=== PATIENT | female | born 1950 | race Caucasian/White ===

== ENCOUNTER 2016-07-05 19:39 | Emergency (ER) | payer OTHER ==
[~2016-07-05 19:39] MED LIST: ANT12.5 PO; CLINDAMYCIN HC300 MG PO; COL100 PO; COLACE100 MG PO; ECO81 PO; ELA25 PO; LAC PO; LEVAQUIN750 MG PO; LIPITOR80 MG PO; NEXIUM20 MG PO; PER5 PO; PROAIR HFA0.09 MG/A1 INH; ZOCOR5 MG PO
[2016-07-05 21:00] VITALS: BP 110/73
== END 2016-07-05 21:00 | disposition home or self-care (01) ==
LOC: ED 19:39
DX: S62.603A Fracture of unspecified phalanx of left middle finger, initial encounter for closed fracture (principal); E78.00 Pure hypercholesterolemia, unspecified; K21.9 Gastro-esophageal reflux disease without esophagitis; Z85.038 Personal history of other malignant neoplasm of large intestine; Z88.2 Allergy status to sulfonamides; Z88.5 Allergy status to narcotic agent; X58.XXXA Exposure to other specified factors, initial encounter; Y93.89 Activity, other specified; Y99.8 Other external cause status; Y92.89 Other specified places as the place of occurrence of the external cause

== ENCOUNTER 2016-07-20 06:56 | Day surgery (SDC) | payer OTHER ==
[~2016-07-20] VITALS: Ht 165.1 cm; Wt 74.8 kg
[2016-07-20 07:19] VITALS: BP 122/59
[2016-07-20 10:31] VITALS: BP 110/70
== END 2016-07-20 10:25 | disposition home or self-care (01) ==
LOC: DS 06:56 → GI 08:30 → OR 08:30 → DS 10:25
PROVIDERS: Internal Medicine Gastroenterology
PROC: 0DB68ZX Excision of Stomach, Via Natural or Artificial Opening Endoscopic, Diagnostic (ICD-10-PCS; principal; 2016-07-20 08:30)
DX: K29.50 Unspecified chronic gastritis without bleeding (principal); Z85.038 Personal history of other malignant neoplasm of large intestine; Z68.26 Body mass index [BMI] 26.0-26.9, adult
CPT/HCPCS: 43235; J1200; J1610; J2250; J2310; J3010; J3490

== ENCOUNTER → 2016-07-24 | Outpatient (CLI) | payer OTHER | END | disposition home or self-care (01) | LOC: RD 15:49 | DX: M25.542 Pain in joints of left hand (principal) ==

== ENCOUNTER 2016-09-23 23:35 | Emergency (ER) | payer OTHER ==
[2016-09-24 01:51] VITALS: BP 126/63
== END 2016-09-24 01:51 | disposition home or self-care (01) ==
LOC: ED 23:35
DX: F41.9 Anxiety disorder, unspecified (principal); R10.13 Epigastric pain; R51 Headache; K21.9 Gastro-esophageal reflux disease without esophagitis; E78.00 Pure hypercholesterolemia, unspecified; Z85.038 Personal history of other malignant neoplasm of large intestine

== ENCOUNTER 2016-10-31 23:38 | Emergency (ER) | payer OTHER ==
[2016-11-01 03:57] VITALS: BP 114/76
== END 2016-11-01 03:57 | disposition home or self-care (01) ==
LOC: ED 23:38
DX: F41.8 Other specified anxiety disorders (principal); G44.209 Tension-type headache, unspecified, not intractable; K21.9 Gastro-esophageal reflux disease without esophagitis; E78.00 Pure hypercholesterolemia, unspecified; Z88.2 Allergy status to sulfonamides; Z88.5 Allergy status to narcotic agent; Z91.011 Allergy to milk products; Z85.038 Personal history of other malignant neoplasm of large intestine; Z79.899 Other long term (current) drug therapy
CPT/HCPCS: J1885

== ENCOUNTER 2017-05-02 19:25 | Emergency (ER) | payer OTHER ==
[~2017-05-02] VITALS: Ht 165.1 cm; Wt 73.9 kg
[2017-05-02 19:38] VITALS: Ht 165.1 cm; Wt 73.9 kg
[2017-05-02 21:45] LABS: BASOPHIL % 0.7 % (0-2); PLATELET COUNT 205 x10^3mcL (130-400); RED CELL DISTRIBUTION WIDTH 13.8 % (11.5-14.5)
[2017-05-02 21:55] LABS: CALCIUM 8.9 mg/dL (8.5-10.1); CARBON DIOXIDE 26.8 mmol/L (21-32); CREATININE SERUM 1.2 mg/dL (0.6-1.0); POTASSIUM SERUM 3.8 mmol/L (3.5-5.1)
[2017-05-02 22:02] LABS: ALBUMIN 3.4 g/dL (3.4-5.0); BILIRUBIN TOTAL 0.3 mg/dL (0.20-1.00); TOTAL PROTEIN, SERUM 6.7 g/dL (6.4-8.2)
[2017-05-03 02:50] VITALS: BP 115/76
== END 2017-05-03 02:51 | disposition home or self-care (01) ==
LOC: ED 19:25
PROVIDERS: Emergency Medicine
DX: R51 Headache (principal); M54.2 Cervicalgia; R11.0 Nausea; R42 Dizziness and giddiness; H92.02 Otalgia, left ear; E78.00 Pure hypercholesterolemia, unspecified; Z88.6 Allergy status to analgesic agent; Z88.2 Allergy status to sulfonamides; Z91.011 Allergy to milk products; Z88.5 Allergy status to narcotic agent; Z85.038 Personal history of other malignant neoplasm of large intestine; Z90.49 Acquired absence of other specified parts of digestive tract; Z90.710 Acquired absence of both cervix and uterus
CPT/HCPCS: J1100; J1885; J2765; J3490; J7030

== ENCOUNTER 2017-08-19 16:48 | Emergency (ER) | payer OTHER ==
[~2017-08-19] VITALS: Ht 165.1 cm; Wt 72.6 kg
[2017-08-19 17:03] VITALS: Ht 165.1 cm; Wt 72.6 kg
[2017-08-19 19:43] VITALS: BP 111/41
== END 2017-08-19 19:43 | disposition home or self-care (01) ==
LOC: ED 16:48
DX: S92.532A Displaced fracture of distal phalanx of left lesser toe(s), initial encounter for closed fracture (principal); S63.612A Unspecified sprain of right middle finger, initial encounter; E78.00 Pure hypercholesterolemia, unspecified; Z88.2 Allergy status to sulfonamides; Z88.5 Allergy status to narcotic agent; Z88.6 Allergy status to analgesic agent; Z91.011 Allergy to milk products; Z90.49 Acquired absence of other specified parts of digestive tract; W22.8XXA Striking against or struck by other objects, initial encounter; Y93.89 Activity, other specified; Y92.89 Other specified places as the place of occurrence of the external cause; Y99.8 Other external cause status
CPT/HCPCS: A4570

== ENCOUNTER 2018-01-03 18:25 | Emergency (ER) | payer OTHER ==
[~2018-01-03] VITALS: Ht 165.1 cm; Wt 68.2 kg
[2018-01-03 19:13] VITALS: BP 108/79
== END 2018-01-03 19:13 | disposition home or self-care (01) ==
LOC: ED 18:25
DX: K12.0 Recurrent oral aphthae (principal); J32.9 Chronic sinusitis, unspecified; Z88.6 Allergy status to analgesic agent; Z88.2 Allergy status to sulfonamides; Z91.011 Allergy to milk products; K21.9 Gastro-esophageal reflux disease without esophagitis; Z90.49 Acquired absence of other specified parts of digestive tract; E78.00 Pure hypercholesterolemia, unspecified

== ENCOUNTER 2018-01-12 17:59 | Emergency (ER) | payer OTHER ==
[~2018-01-12] VITALS: Ht 165.1 cm; Wt 68.0 kg
[2018-01-12 18:09] VITALS: Ht 165.1 cm; Wt 68.0 kg
[2018-01-12 19:04] LABS: UA SPECIFIC GRAVITY 1.025 (1.005-1.035); microscopic required? YES; urine erythrocyte 1+ (NEGATIVE)
[2018-01-12 19:33] LABS: BASOPHIL % 0.7 % (0-2); CALCIUM 8.7 mg/dL (8.5-10.1); CREATININE SERUM 1.4 mg/dL (0.6-1.0); PLATELET COUNT 278 x10^3mcL (130-400); RED CELL DISTRIBUTION WIDTH 12.6 % (11.5-14.5)
[2018-01-12 19:36] LABS: MAGNESIUM 1.8 mg/dL (1.8-2.4); PHOSPHOROUS 3.5 mg/dL (2.5-4.9)
[2018-01-12 20:33] LABS: CK-MB 4.1 ng/mL (0-3.6)
[2018-01-12 20:52] VITALS: BP 116/66
== END 2018-01-12 20:52 | disposition home or self-care (01) ==
LOC: ED 17:59
PROVIDERS: Emergency Medicine
DX: R42 Dizziness and giddiness (principal); E86.0 Dehydration; R11.2 Nausea with vomiting, unspecified; R51 Headache; R53.1 Weakness; K21.9 Gastro-esophageal reflux disease without esophagitis; E78.00 Pure hypercholesterolemia, unspecified; Z90.49 Acquired absence of other specified parts of digestive tract; Z85.038 Personal history of other malignant neoplasm of large intestine; Z88.2 Allergy status to sulfonamides; Z88.6 Allergy status to analgesic agent; Z88.5 Allergy status to narcotic agent; Z91.011 Allergy to milk products
CPT/HCPCS: 83880; J2405; J7030; J8597; Q0092

== ENCOUNTER 2018-02-14 09:56 | Emergency (ER) | payer OTHER ==
[~2018-02-14] VITALS: Ht 165.1 cm; Wt 67.6 kg
[2018-02-14 10:20] VITALS: Ht 165.1 cm; Wt 67.6 kg
[2018-02-14 10:59] VITALS: BP 105/75
== END 2018-02-14 10:59 | disposition home or self-care (01) ==
LOC: ED 09:56
DX: J02.9 Acute pharyngitis, unspecified (principal); E78.00 Pure hypercholesterolemia, unspecified; K21.9 Gastro-esophageal reflux disease without esophagitis; Z88.2 Allergy status to sulfonamides; Z88.5 Allergy status to narcotic agent; Z91.011 Allergy to milk products; Z85.038 Personal history of other malignant neoplasm of large intestine; Z90.49 Acquired absence of other specified parts of digestive tract
CPT/HCPCS: 82962; J1100

== ENCOUNTER 2018-04-11 19:16 | Emergency (ER) | payer OTHER ==
[~2018-04-11] VITALS: Ht 165.1 cm; Wt 70.3 kg
[2018-04-11 19:27] VITALS: Ht 165.1 cm; Wt 70.3 kg
[2018-04-11 22:21] VITALS: BP 110/72
== END 2018-04-11 22:10 | disposition home or self-care (01) ==
LOC: ED 19:16
DX: S93.401A Sprain of unspecified ligament of right ankle, initial encounter (principal); E78.00 Pure hypercholesterolemia, unspecified; K21.9 Gastro-esophageal reflux disease without esophagitis; W10.8XXA Fall (on) (from) other stairs and steps, initial encounter; Y93.89 Activity, other specified; Y92.89 Other specified places as the place of occurrence of the external cause; Y99.8 Other external cause status

== ENCOUNTER 2018-06-17 14:48 | Emergency (ER) | payer OTHER ==
[~2018-06-17] VITALS: Ht 165.1 cm; Wt 68.9 kg
[2018-06-17 14:58] VITALS: Ht 165.1 cm; Wt 68.9 kg
[2018-06-17 18:19] LABS: BASOPHIL % 0.7 % (0-2); PLATELET COUNT 215 x10^3mcL (130-400); RED CELL DISTRIBUTION WIDTH 13.6 % (11.5-14.5)
[2018-06-17 18:40] LABS: CALCIUM 8.7 mg/dL (8.5-10.1); CARBON DIOXIDE 25.4 mmol/L (21-32); CREATININE SERUM 1.1 mg/dL (0.6-1.0); POTASSIUM SERUM 3.9 mmol/L (3.5-5.1)
[2018-06-17 18:41] LABS: FREE T4 0.85 ng/dL (0.76-1.46); FREE THYROXINE INDEX 2.5 ug/dL (1.4-4.5); T4(THYROXINE) 7.8 ug/dL (4.7-13.3)
[2018-06-17 18:43] LABS: T3 TOTAL 1.42 ng/mL
[2018-06-17 18:46] LABS: ALBUMIN 3.5 g/dL (3.4-5.0); BILIRUBIN TOTAL 0.3 mg/dL (0.20-1.00); C REACTIVE PROTEIN 0.6 mg/dL (<=0.9); TOTAL PROTEIN, SERUM 7.4 g/dL (6.4-8.2)
[2018-06-17 19:01] LABS: UA SPECIFIC GRAVITY 1.025 (1.005-1.035); microscopic required? YES; urine erythrocyte TRACE (NEGATIVE)
[2018-06-17 19:05] LABS: CK-MB 1.5 ng/mL (0-3.6); ERYTHROCYTE SED RATE 32 mm/hr (0-30)
[2018-06-17 20:24] VITALS: BP 124/77
== END 2018-06-17 20:25 | disposition home or self-care (01) ==
LOC: ED 14:48
PROVIDERS: Specialist
DX: J01.90 Acute sinusitis, unspecified (principal); J44.9 Chronic obstructive pulmonary disease, unspecified; J10.1 Influenza due to other identified influenza virus with other respiratory manifestations; K21.9 Gastro-esophageal reflux disease without esophagitis; E78.00 Pure hypercholesterolemia, unspecified; Z90.49 Acquired absence of other specified parts of digestive tract; Z90.89 Acquired absence of other organs; Z90.710 Acquired absence of both cervix and uterus; Z87.19 Personal history of other diseases of the digestive system; Z98.890 Other specified postprocedural states; Z88.6 Allergy status to analgesic agent; Z88.2 Allergy status to sulfonamides; Z91.011 Allergy to milk products
CPT/HCPCS: 36600; 84439; 87804; J2930; J7613; J7644

== ENCOUNTER 2018-07-15 20:02 | Emergency (ER) | payer OTHER ==
[~2018-07-15] VITALS: Ht 165.1 cm; Wt 70.8 kg
[2018-07-15 20:13] VITALS: BP 115/77; Ht 165.1 cm; Wt 70.8 kg
== END 2018-07-15 21:01 | disposition home or self-care (01) ==
LOC: ED 20:02
DX: J32.9 Chronic sinusitis, unspecified (principal); K21.9 Gastro-esophageal reflux disease without esophagitis; E78.00 Pure hypercholesterolemia, unspecified; Z90.49 Acquired absence of other specified parts of digestive tract; Z87.19 Personal history of other diseases of the digestive system; Z88.2 Allergy status to sulfonamides; Z91.011 Allergy to milk products; Z88.5 Allergy status to narcotic agent; Z85.038 Personal history of other malignant neoplasm of large intestine; Z90.89 Acquired absence of other organs; Z90.710 Acquired absence of both cervix and uterus

== ENCOUNTER 2018-09-25 23:17 | Inpatient (IN) | payer OTHER ==
[~2018-09-25] VITALS: Ht 165.1 cm; Wt 73.7 kg
--- NOTE | 2018-09-25 23:21 | NUR ---
EKG IN PROGRESS.
[2018-09-25 23:26] VITALS: Ht 165.1 cm; Wt 73.7 kg
--- NOTE | 2018-09-25 23:41 | NUR ---
PT IN ED FOR LEFT SIDED CP ONSET TODAY WHILE SLEEPING PER PT. STS ACCOMPANIED WITH RIGHT SIDED HEAD PAIN. PT AAO4, RESP E/U, SPEAKING CLEARLY AND APPROPRIATELY.
[2018-09-26 00:21] LABS: BASOPHIL % 0.6 % (0-2); PLATELET COUNT 204 x10^3mcL (130-400)
[2018-09-26 00:31] LABS: CALCIUM 8.9 mg/dL (8.5-10.1); CARBON DIOXIDE 27.6 mmol/L (21-32); CREATININE SERUM 1.1 mg/dL (0.6-1.0); POTASSIUM SERUM 3.6 mmol/L (3.5-5.1)
[2018-09-26 00:35] LABS: BILIRUBIN TOTAL 0.4 mg/dL (0.20-1.00); TOTAL PROTEIN, SERUM 6.6 g/dL (6.4-8.2)
--- NOTE | 2018-09-26 00:54 | NUR ---
PT MEDICATED PER EMAR. AWAKE, ALERT, RESPIRATIONS EVEN AND UNLABORED. SAFETY PRECAUTIONS IN PLACE
--- NOTE | 2018-09-26 02:42 | NUR ---
PT TAKEN FOR CT SCAN BY DRYWALL STRIPPER HELPER IN NO ACUTE DISTRESS
--- NOTE | 2018-09-26 02:59 | NUR ---
PT BACK FROM CT SCAN, PER TONY "IV BLEW TOWARDS THE END OF THE INJECTION." DR. VALENTIN AWARE AND VERBALIZES UNDERSTANDING. IV CATHETER DC'D, CATHETER TIP INTACT. CAP REFILL < 3SECS, PULSES STRONG, DENIES NUMBNESS OR TINGLING, ABLE TO WIGGLE FINGERS. DISCOLORATION AND LARGE BUMP NOTED TO RIGHT AC. WARM COMPRESS APPLIED. WILL ALTERNATE BETWEEN COLD AND WARM COMPRESS.
--- NOTE | 2018-09-26 04:57 | NUR ---
REPORT CALLED TO BENJAMIN YEN, ALL QUESTIONS AND CONCERNS WERE ADDRESSED
--- NOTE | 2018-09-26 05:50 | NUR ---
RECEIVED FROM ER, TRANSPORTED VIA [facility]. AMBULATED WITH STEADY GAIT INTO ROOM. AWAKE AND ALERT, ORIENTED TO NAME, PLACE, TIME AND SITUATION. SPEECH CLEAR AND APPROPRIATE. BREATHING UNLABORED, LUNG SOUNDS DIMINISHED, NOTED HAVING SHARP PAIN TO LEFT SIDE OF CHEST WHENEVER SHE COUGHS. ALSO STATED SHE HAS HEADACHE 5/10. SLIGHT SWELLING NOTED TO RIGHT AC, PER ER REPORT, WAS SITE OF IV THAT INFILTRATED DURING CT SCAN. NO REDNESS NOTED. SALINE LOCK TO LEFT HAND. SINUS RHYTHM ON TELE #22. ORIENTED TO ROOM ENVIRONMENT, INSTRUCTED ON USE OF CALL LIGHT TO CALL FOR ASSISTANCE. PLACED WITHIN EASY REACH.
[2018-09-26 06:00] VITALS: BP 102/60
--- NOTE | 2018-09-26 06:25 | NUR ---
CALLED DR. LOVELL FOR ADMIT ORDERS, ORDERS READ BACK.
--- NOTE | 2018-09-26 06:30 | NUR ---
PT UNABLE TO REMEMBER EXACT DOSES OF HER MEDICATIONS. SHE STATED SHE WILL HAVE HER GRANDSON BRING HER PILL BOTTLES THIS MORNING.
--- NOTE | 2018-09-26 06:43 | NUR ---
PT ASKED FOR PAIN MEDICATION FOR HER HEADACHE. PREFERRED TYLENOL OVER NORCO.
--- NOTE | 2018-09-26 06:50 | NUR ---
EKG WAS DONE BY RESP THERAPIST, READS SINUS RHYTHM. PROVIDED WITH ALE MENDOZA. STATED SHE IS HUNGRY
--- NOTE | 2018-09-26 07:22 | NUR ---
IN RESTROOM, PT STATED SHE IS ALRIGHT. ENDORSED TO NURSE KELLY
--- NOTE | 2018-09-26 07:45 | NUR ---
RECEIVED PT IN BED, AXOX4, VERBAL, CALM AND COPPERATICE TO POC, PERRLA, BRISK, NO DAINAGE/REDNESS, DENIES HEADACHE/PAIN, NO FACIAL DROP/ SLURRED SPEECH NOTED, RESP EQUAL AND NON-LAQBORED, LUNGS CTA, DIM BLL, AT RA, NO ACUTE RESP DITRESS/SOB, DENIES CP/PRESSURE AT THIS TIME, AMBULATORY, ABD FLAT AND NON TENDER TO TOUCH, BS ACTIVE X 4, ABLE TO MOVE ALL EXTREMITIES WITH MINIMAL LIMITATION, SKIN D/W/I, SLIGHT SWELLING TO (R) AC D/T HX OF INFILTRATION OF PREVIOUS CT SCAN, PALP PULSE, CAP REFIL < 3 SEC, ON TELE #22, NSR, TROP (-), ALL NEEDS MET, CALL LIGHT IN TOUCH, BED AT LOW POSITION, CONTINUE TO MONITOR
[2018-09-26 08:17] LABS: MAGNESIUM 1.8 mg/dL (1.8-2.4)
[2018-09-26 08:20] VITALS: BP 112/67
[2018-09-26 08:25] LABS: CHOLESTEROL/HDL RATIO 2.9
--- NOTE | 2018-09-26 08:30 | NUR ---
PT IN BED, AWAKE AND ALERT, NO ACUTE DISTRESS REPORTED AT THIS TIME, MORNING MED GIVEN PER MD ORDER VIA EMAR, TOLERATED MED WELL, NO ASE NOTED AT THIS TIME, PT REFUSED BP MED, SAYING THAT PT BP ALWAYS RUN LOW, NOT HIGH, DR LOVELL AWARE DURING VISIT, NNO, ALL NEEDS MET, BED AT LOW POSITION, CONY LIGHT IN TOUGH, RAILS X 2, CONTINUE TO MONITOR AND F/U
--- NOTE | 2018-09-26 10:05 | NUR ---
I HAVE REVIEWED THE DATA COLLECTION BY FARSHAD BOGGS (NAME):BENTON DESAI ENTERED ON (DATE/TIME):09/26/18 @ 1005 I CONCUR WITH THE DATA AND ANY EXCEPTIONS OR COMMENTS ARE LISTED BELOW:
--- NOTE | 2018-09-26 10:22 | NUR ---
CALLED.WANTED TO KNOW ABOUT PT.UPDATED HIM ABOUT THE PT.ORDERED TROP TO BE DRAWN NOW ALSO EKG AND ECHO AND LEXISCAN AT 1330.
--- NOTE | 2018-09-26 11:30 | NUR ---
PT IN BED, EVAL BY DR BROWNE, ORDER TO REQUEST MED RECORD TRANSFERED FROM [facility] FROM MOST RECENT VISIT OF PET SCAN, CT SCAN AND BIOPSY, PT AWARE AND SIGNED RELEASED RECORD FORM, FAXED TO [facility], CONTINUE TO NIDHI
--- NOTE | 2018-09-26 11:33 | NUR ---
PT IN BED, AWAKE AND ALERT, SON AT BEDSIDE, PT AWARE OF UP COMMING TEST AND TEMPORARY NPO FOR THE TEST ACURACY, VERBALLY UNDERSTANDING, PER SON AND PT, PT HAD DIARRHEA A COUPLE DAYS AGO AND PT TOOK PEPTO BISMO, PT AND SON AWARE OF CONT MONITOR ON TOOL COLOR FROM ADMISSION, VERBALLY UNDERSTANDING WILL NOTIFY NURSE WHEN HAVING BM, CHARGE NURSE AND KELLY RN AWARE, CONTINUE TO MONITOR
[2018-09-26] MEDS ORDERED: CLARITIN10 MG PO (11:44)
[2018-09-26] MEDS ORDERED: LIPI20 PO (11:45)
[2018-09-26] MEDS ORDERED: OMEPRAZOLE40 M1 PO (11:46)
--- NOTE | 2018-09-26 11:51 | NUR ---
PER PT CLAIMS TO WANT TO TAKE HER CLARITIN FOR ALLERGY.CALLED DR.LIN MAN FOR PT TO TAKE CLARITIN 10 MG PO DAILY.
[2018-09-26 12:25] VITALS: BP 126/63
--- NOTE | 2018-09-26 13:10 | NUR ---
PT WENT DOWN VIA WHEELCHAIR FOR LEXISCAN.
--- NOTE | 2018-09-26 14:02 | NUR ---
STRESS TEST COMPLETE.
--- NOTE | 2018-09-26 14:06 | NUR ---
PT COME BACK FROM STRESS TEST, PER DR PRATT CHAMPION OF SUSTAINABLE DESIGN, PT REFUSED ISOTOPE INFUSION THAT NECESSARY FOR LEXISCAN STRESS TEST, PT HAD REG STRESS TEST, PT AWARE, ECHO TEST NOT DONE AT THIS TIME AND NO RESULT AVAILABLE AT THIS TIME PER KELLY APODACA RN AN CHARGE NURSE AWARE, CONTINUE TO MONITOR
--- NOTE | 2018-09-26 14:55 | NUR ---
PT IN BED, REPORT DAVIS NOT GETTING BETTER, REFUSED TO TAKE TYLENOL OR NORCO, DR LOVELL AWARE, NEW ORDER ADVIL 200MG TAB NOW AND Q4H PRN FOR DAVIS, PT AWARE, FAMILY MEBER AT BEDSIDE, PT HAD LUNCH, CONTINUE TO MONITOR
--- NOTE | 2018-09-26 16:00 | NUR ---
PT SLEEPING IN BED, NO APPARENT ACUTE DISTRESS NOTED, RESP EVEN AND NON-LABORED, BED AT LOW POSITION, RAILS X 2, CALL LIGHT IN REACH, CONTINUE TO MONITOR
[2018-09-26 17:04] VITALS: BP 119/61
--- NOTE | 2018-09-26 17:08 | NUR ---
PT RESTING IN BED, DENIED PAIN/DISCOMFORT, NO APPARENT ACUTE RESP DISTRESS/CP, PT AWARE OF UA LAB, NO URINE COLLECTED AT THIS TIME, WILL CONTINUE TO MONITOR
--- NOTE | 2018-09-26 18:06 | NUR ---
PT IN BED, AWAKE AND VERBALLY RESPONSIVE, RESP EQUAL AND NO-LABORED, REPORT NO PAIN/DISCOMFORT AT THIS TIME, NO FACIAL DROOP/ SLUURED SPEECH, NO DIZZINESS/N/V, NO CP/PRESSURE REPORTED AT THIS TIME, URINE COLLECTED FOR UA PER MD ORDER, FAMILY MEMBER AT BEDSIDE, PT IN NO CURRENT ACUTE DISTRESS, ALL NEEDS MET, BED AT LOW POSITION, CALL LIGHT IN REACH, RAILS X 2, CONTINUE TO MONITOR AND F/U
--- NOTE | 2018-09-26 18:45 | NUR ---
PT SLEEPING IN BED, NO ACUTE DISTRESS, RESP EQUAL AND NON-LABORED, REPORT NO DAVIS/CP/PRESSURE, FAMILY AT BEDSIDE, NO FACIAL DROOP/SLURRED SPEECH NOTED, CALL LIGHT IN TOUCH, BED AT LOW POSITION, RAILS X 2, ENDORSED TO NIGHTSHIFT RN
[2018-09-26 19:23] LABS: microscopic required? YES; urine erythrocyte TRACE (NEGATIVE)
--- NOTE | 2018-09-26 20:00 | NUR ---
PT A/A/O X4. DENIES DIZZINESS AND HEADACHE. BREATH SOUNDS CLEAR. BREATHING EVEN AND UNLABORED ON ROOM AIR. DENIES CHEST PAIN AND PRESSURE. BOWEL SOUNDS ACTIVE. NO C/O N/V AND ABD PAIN. IV SALINE LOCK NOTED ON THE LEFT HAND. MADE PT COMFORTABLE. PLACED CALL LIGHT WITH IN REACH. WILL CONTINUE TO MONITOR.
[2018-09-26 21:34] VITALS: BP 105/65
--- NOTE | 2018-09-27 00:59 | NUR ---
PT RESTING WITH EYES CLOSED. NO DISTRESS AND DISCOMFORT NOTED. WILL CONTINUE TO MONITOR.
[2018-09-27 05:42] VITALS: BP 113/68
--- NOTE | 2018-09-27 07:01 | NUR ---
PT QUIET AND RESTING. NO SIGNIFICANT CHANGES NOTED. MADE PT COMFORTABLE. WILL ENDORSE TO THE AM NURSE ACCORDINGLY.
[2018-09-27 07:17] LABS: CALCIUM 8.8 mg/dL (8.5-10.1); CREATININE SERUM 1.1 mg/dL (0.6-1.0)
[2018-09-27 07:27] LABS: BASOPHIL % 0.1 % (0-2); PLATELET COUNT 207 x10^3mcL (130-400); RED CELL DISTRIBUTION WIDTH 14.1 % (11.5-14.5)
--- NOTE | 2018-09-27 07:45 | NUR ---
RECEIVED BEDSIDE REPORT FROM EARTH SCIENCE PROFESSOR NURSE. PATIENT IS STABLE NO APPARENT SIGNS OF PAIN, SOB, OR RESPIRATORY DISTRESS. PATIENT IS ON ROOM AIR. IV TO LEFT HAND IS SALINE LOCKED, NO EDEMA OR ERYTHEMA NOTED. ALLERGY BAND IN PLACE. CALL LIGHT WITHIN REACH BED IN LOW POSITION. QUESTIONS AND CONCERNS ADDRESSED, SAFETY PRECAUTIONS IN PLACE.
[2018-09-27 08:20] VITALS: BP 124/64
--- NOTE | 2018-09-27 08:45 | NUR ---
ADMINISTERED MEDICATION PER EMAR. PATIENT EDUCATED ON NEED FOR MEDICATION WELL ADVERSE EFFECTS TO REPORT. PATIENT TOLORATED WELL. VERBALIZED UNDERSTANDING. QUESTIONS AND CONCERNS ADDRESSED. PATIENT DENIES OTHER NEEDS AT THIS TIME. SAFETY PRECAUTIONS IN PLACE.
--- NOTE | 2018-09-27 09:58 | NUR ---
PATIENT IS C/O PAIN OF DAVIS. ADMINISTERED ADVIL PER EMAR. PATIENT STATES PAIN CONTINUES. DOES NOT WANT NORCO. CALLED MD TO MAKE AWARE. MD GAVE TELEPHONE READBACK ORDER FOR IBUPROFEN 600MG.
--- NOTE | 2018-09-27 11:32 | NUR ---
PT C/O DAVIS ADMINISTERED MEDICATION PER EMAR. PATIENT EDUCATED ON NEED FOR MEDICATION WELL ADVERSE EFFECTS TO REPORT. PATIENT TOLORATED WELL. VERBALIZED UNDERSTANDING. QUESTIONS AND CONCERNS ADDRESSED. PATIENT DENIES OTHER NEEDS AT THIS TIME. SAFETY PRECAUTIONS IN PLACE.
[2018-09-27 12:32] VITALS: BP 99/53
[2018-09-27 13:24] VITALS: BP 99/53
--- NOTE | 2018-09-27 13:34 | NUR ---
PATIENT IS STABLE NO APPARENT SIGNS OF PAIN, SOB, OR RESPIRATORY DISTRESS. PATIENT GIVEN DISCHARGE INSTRUCTIONS, AND PRESCRIPTIONS FOR HOME MEDICATIONS. PATIENT VERBALIZES UNDERSTANDING OF INSTRUCTIONS. FAMILY AT BEDSIDE. TELE REMOVED AND RETURNED. ALL PERSONAL BELONGINGS WITH PATIENT. PATIENT TAKEN DOWN VIA WHEELCHAIR BY RESIDENCE LIFE DIRECTOR. DISCHARGE COMPLETE.
== END 2018-09-27 13:49 | disposition home or self-care (01) | DRG 190 ==
LOC: ED 23:17 → DU 09-26 04:38
PROVIDERS: Emergency Medicine; ADMIT Internal Medicine
DX: J44.1 Chronic obstructive pulmonary disease with (acute) exacerbation (principal); J69.0 Pneumonitis due to inhalation of food and vomit; R91.8 Other nonspecific abnormal finding of lung field; I25.10 Atherosclerotic heart disease of native coronary artery without angina pectoris; Z79.82 Long term (current) use of aspirin; Z68.26 Body mass index [BMI] 26.0-26.9, adult; Z87.891 Personal history of nicotine dependence; Z86.718 Personal history of other venous thrombosis and embolism; Z85.038 Personal history of other malignant neoplasm of large intestine
CPT/HCPCS: 83880; 85378; G0378; J1644; J2543; J2785; J3010; J7050; J7620; J7626; Q0092; Q9967

== ENCOUNTER 2019-02-28 18:46 | Emergency (ER) | payer OTHER ==
[~2019-02-28] VITALS: Ht 165.1 cm; Wt 73.5 kg
[~2019-02-28 18:46] MED LIST changes: +CLARITIN10 MG PO; +LIPI20 PO; +OMEPRAZOLE40 M1 PO
[2019-02-28 18:53] VITALS: Ht 165.1 cm; Wt 73.5 kg
[2019-02-28 19:42] LABS: UA SPECIFIC GRAVITY 1.025 (1.005-1.035); microscopic required? YES; urine erythrocyte TRACE (NEGATIVE)
[2019-02-28 20:06] LABS: CALCIUM 8.6 mg/dL (8.5-10.1); CARBON DIOXIDE 28.6 mmol/L (21-32); CREATININE SERUM 1.3 mg/dL (0.6-1.0); POTASSIUM SERUM 4.2 mmol/L (3.5-5.1)
[2019-02-28 20:11] LABS: ALBUMIN 3.3 g/dL (3.4-5.0); BILIRUBIN TOTAL 0.2 mg/dL (0.20-1.00); TOTAL PROTEIN, SERUM 6.7 g/dL (6.4-8.2)
[2019-02-28 20:25] LABS: PLATELET COUNT 226 x10^3mcL (130-400); RED CELL DISTRIBUTION WIDTH 13.7 % (11.5-14.5)
[2019-02-28 23:56] VITALS: BP 113/98
== END 2019-03-01 00:02 | disposition home or self-care (01) ==
LOC: ED 18:46
PROVIDERS: Emergency Medicine
DX: R10.9 Unspecified abdominal pain (principal); R30.0 Dysuria; Z88.2 Allergy status to sulfonamides; Z88.5 Allergy status to narcotic agent; Z91.011 Allergy to milk products; E78.00 Pure hypercholesterolemia, unspecified; Z90.49 Acquired absence of other specified parts of digestive tract; Z98.890 Other specified postprocedural states; Z85.038 Personal history of other malignant neoplasm of large intestine
CPT/HCPCS: 36415; Q9967

== ENCOUNTER 2019-04-13 19:59 | Emergency (ER) | payer OTHER ==
[~2019-04-13] VITALS: Ht 165.1 cm; Wt 72.6 kg
[2019-04-13 20:13] VITALS: Ht 165.1 cm; Wt 72.6 kg
[2019-04-14 00:10] VITALS: BP 129/84
== END 2019-04-14 00:10 | disposition home or self-care (01) ==
LOC: ED 19:59
DX: S13.4XXA Sprain of ligaments of cervical spine, initial encounter (principal); S83.91XA Sprain of unspecified site of right knee, initial encounter; S63.91XA Sprain of unspecified part of right wrist and hand, initial encounter; S76.011A Strain of muscle, fascia and tendon of right hip, initial encounter; S09.8XXA Other specified injuries of head, initial encounter; K21.9 Gastro-esophageal reflux disease without esophagitis; Z88.2 Allergy status to sulfonamides; Z91.011 Allergy to milk products; Z88.8 Allergy status to other drugs, medicaments and biological substances; Z44.9 Encounter for fitting and adjustment of unspecified external prosthetic device; Z98.890 Other specified postprocedural states; W01.0XXA Fall on same level from slipping, tripping and stumbling without subsequent striking against object, initial encounter; Y93.89 Activity, other specified; Y92.89 Other specified places as the place of occurrence of the external cause; Y99.8 Other external cause status
CPT/HCPCS: Q0092

== ENCOUNTER 2020-02-19 13:55 | Emergency (ER) | payer OTHER ==
[~2020-02-19] VITALS: Ht 165.1 cm; Wt 72.6 kg
[2020-02-19 13:58] VITALS: Ht 165.1 cm; Wt 72.6 kg
[2020-02-19 14:30] VITALS: BP 120/77
== END 2020-02-19 14:40 | disposition home or self-care (01) ==
LOC: ED 13:55
DX: U07.1 COVID-19 (principal); Z88.6 Allergy status to analgesic agent; Z88.5 Allergy status to narcotic agent; Z91.011 Allergy to milk products; J44.9 Chronic obstructive pulmonary disease, unspecified; K21.9 Gastro-esophageal reflux disease without esophagitis; E78.00 Pure hypercholesterolemia, unspecified; Z90.49 Acquired absence of other specified parts of digestive tract
CPT/HCPCS: U0003

== ENCOUNTER 2020-02-22 11:07 | Emergency (ER) | payer OTHER ==
[~2020-02-22] VITALS: Ht 160 cm; Wt 72.6 kg
[2020-02-22 11:09] VITALS: BP 109/74; Ht 160 cm; Wt 72.6 kg
[2020-02-22 11:55] LABS: BASOPHIL % 0.4 % (0-2); PLATELET COUNT 156 x10^3mcL (130-400); RED CELL DISTRIBUTION WIDTH 13.7 % (11.5-14.5)
[2020-02-22 12:07] LABS: CALCIUM 8.4 mg/dL (8.5-10.1); CARBON DIOXIDE 28.5 mmol/L (21-32); CREATININE SERUM 1.1 mg/dL (0.6-1.0); POTASSIUM SERUM 3.5 mmol/L (3.5-5.1)
[2020-02-22 12:11] LABS: BILIRUBIN TOTAL 0.27 mg/dL (0.20-1.00); C REACTIVE PROTEIN 1.6 mg/dL (<=0.9); TOTAL PROTEIN, SERUM 7.1 g/dL (6.4-8.2)
[2020-02-22 12:13] LABS: ALBUMIN 3.3 g/dL (3.4-5.0)
[2020-02-22 12:58] LABS: UA SPECIFIC GRAVITY >=1.030 (1.005-1.035); microscopic required? YES; urine erythrocyte TRACE (NEGATIVE)
== END 2020-02-22 15:38 | disposition home or self-care (01) ==
LOC: ED 11:07
PROVIDERS: Emergency Medicine
DX: U07.1 COVID-19 (principal); R19.7 Diarrhea, unspecified
CPT/HCPCS: 83880; 85378; 87804